=== PATIENT | female | born 1975 | race Caucasian/White ===

== ENCOUNTER → 2017-06-30 13:32 | Outpatient (CLI) | payer OTHER, SELFPAY ==
[2017-06-30 15:16] LABS: Color, Urine Yellow (Yellow); Glucose, Dipstick Normal (Normal); Ketone-Dipstick Negative (Negative); Leukocyte Esterase-Dipstick Negative /ul (Negative); Nitrite-Dipstick Negative (Negative); Occult Blood-Urine Negative /ul (Negative); Protein-Dipstick Negative (Negative); Specific Gravity, Urine 1.005 (1.002-1.030); Urine Bilirubin Dipstick Negative (Negative); Urine Clarity Clear (Clear); Urine Urobilinogen Normal (Normal)
[2017-06-30 15:25] LABS: Absolute Lymphocyte Count 1.64 X10^3/ul (0.83-4.51); Absolute Neutrophil Count 4.4 X10^3/uL (2.0-7.7); Basophil# 0.03 X10^3/uL; Basophil% 0.4 % (0-1); Eosinophil# 0.16 X10^3/uL; Eosinophils% 2.4 % (0-5); Hematocrit 37.2 % (37-47); Hemoglobin 12.8 g/dl (12.0-15.0); Lymphocyte # 1.64 X10^3/ul (4.0); Lymphocyte % 24.3 % (19-41); Mean Corp Hgb Conc 34.4 g/gl (32-36); Mean Corpuscular Hgb 31.7 pg (27.0-32.0); Mean Corpuscular Volume 92.1 fL (81-99); Mean Platelet Vol. 9.4 fl (6.2-12.0); Monocyte% 7.4 % (0-10); Neutrophil % 65.2 % (47-70); Platelet Count 308 K/mm3 (150-450); RBC Distribution Width SD 39.8 fl (35.1-43.9); Red Blood Count 4.04 M/mm3 (4.2-5.4); White Blood Count 6.8 K/mm3 (4.4-11.0)
[2017-06-30 15:28] LABS: POSITIVE COUNT NO; POSITIVE DIFFERENTIAL NO; POSITIVE MORPHOLOGY NO
[2017-06-30 15:48] LABS: AST(SGOT) 15 U/L (15-37); Alanine Aminotransfer ALT/SGPT 10 U/L (13-56); Albumin, Serum 3.6 g/dL (3.2-5.0); Alkaline Phosphatase 43 U/L (45-117); Anion Gap 6 (5-15); BUN 13 mg/dL (7-18); BUN/Creat Ratio 16.3 RATIO (10-20); Calcium,Total 8.9 mg/dL (8.5-10.1); Chloride 105 mmol/L (98-107); EST Glomerular Filtration Rate 84 mL/min (>60); Est Glom Filt Rate - Afr Amer 102 mL/min (>60); Globulin 3.7 g/dL (2.2-4.2); Glucose 79 mg/dL (74-106); Potassium 3.5 mmol/L (3.5-5.1); Protein, Total 7.3 g/dL (6.4-8.2); Sodium Level 138 mmol/L (136-145)
[2017-06-30 16:06] LABS: Protein, Urine (Random) < 6.0 mg/dL (<11.9)
== END ==
PROVIDERS: Visit Provider Internal Medicine Rheumatology
DX: M32.9 Systemic lupus erythematosus, unspecified (principal); L40.8 Other psoriasis
CPT/HCPCS: 36415; 80053; 81002; 82570; 84156; 85025

== ENCOUNTER → 2017-12-31 13:17 | Outpatient (CLI) | payer OTHER, SELFPAY ==
[2017-12-31 14:39] LABS: Color, Urine Yellow (Yellow); Glucose, Dipstick Normal (Normal); Ketone-Dipstick Negative (Negative); Leukocyte Esterase-Dipstick Negative /ul (Negative); Nitrite-Dipstick Negative (Negative); Occult Blood-Urine Negative /ul (Negative); Protein-Dipstick Negative (Negative); Urine Bilirubin Dipstick Negative (Negative); Urine Clarity Clear (Clear); Urine Urobilinogen Normal (Normal)
[2017-12-31 14:40] LABS: Absolute Lymphocyte Count 0.93 X10^3/ul (0.83-4.51); Absolute Neutrophil Count 4.3 X10^3/uL (2.0-7.7); Basophil# 0.03 X10^3/uL; Basophil% 0.5 % (0-1); Eosinophil# 0.06 X10^3/uL; Hematocrit 39.6 % (37-47); Hemoglobin 13.7 g/dl (12.0-15.0); Lymphocyte # 0.93 X10^3/ul (4.0); Lymphocyte % 15.7 % (19-41); Mean Corp Hgb Conc 34.6 g/gl (32-36); Mean Corpuscular Hgb 31.8 pg (27.0-32.0); Mean Corpuscular Volume 91.9 fL (81-99); Monocyte# 0.53 X10^3/uL; Neutrophil # 4.34 X10^3/uL (2.7-7.7); Neutrophil % 73.5 % (47-70); Platelet Count 279 K/mm3 (150-450); RBC Distribution Width CV 12.2 % (11.6-14.6); RBC Distribution Width SD 40.3 fl (35.1-43.9); Red Blood Count 4.31 M/mm3 (4.2-5.4); White Blood Count 5.9 K/mm3 (4.4-11.0)
[2017-12-31 14:41] LABS: POSITIVE COUNT NO; POSITIVE DIFFERENTIAL NO; POSITIVE MORPHOLOGY NO
[2017-12-31 15:06] LABS: AST(SGOT) 12 U/L (15-37); Alanine Aminotransfer ALT/SGPT 14 U/L (13-56); Albumin, Serum 3.8 g/dL (3.2-5.0); Alkaline Phosphatase 58 U/L (45-117); Anion Gap 9 (5-15); BUN 14 mg/dL (7-18); BUN/Creat Ratio 17.5 RATIO (10-20); Calcium,Total 8.7 mg/dL (8.5-10.1); Chloride 103 mmol/L (98-107); EST Glomerular Filtration Rate 84 mL/min (>60); Est Glom Filt Rate - Afr Amer 101 mL/min (>60); Glucose 85 mg/dL (74-106); Potassium 3.7 mmol/L (3.5-5.1); Protein, Total 7.8 g/dL (6.4-8.2); Sodium Level 140 mmol/L (136-145)
[2017-12-31 15:08] LABS: Vitamin D,25 Hydroxy 34.3 ng/mL (29.95-100.01)
[2017-12-31 15:09] LABS: Protein, Urine (Random) < 6.0 mg/dL (<11.9)
== END ==
PROVIDERS: Referring Provider Internal Medicine Rheumatology; Visit Provider Internal Medicine Rheumatology
DX: M32.9 Systemic lupus erythematosus, unspecified (principal); L40.8 Other psoriasis
CPT/HCPCS: 36415; 80053; 81002; 82306; 82570; 84156; 85025

== ENCOUNTER → 2018-06-22 | Outpatient (CLI) | payer OTHER, SELFPAY ==
[2018-06-22 12:30] LABS: Absolute Lymphocyte Count 1.65 X10^3/ul (0.83-4.51); Absolute Neutrophil Count 2.9 X10^3/uL (2.0-7.7); Basophil# 0.03 X10^3/uL; Basophil% 0.6 % (0-1); Eosinophil# 0.15 X10^3/uL; Eosinophils% 2.9 % (0-5); Hematocrit 38.5 % (37-47); Hemoglobin 13.2 g/dl (12.0-15.0); Lymphocyte # 1.65 X10^3/ul (4.0); Lymphocyte % 32.2 % (19-41); Mean Corp Hgb Conc 34.3 g/gl (32-36); Mean Corpuscular Hgb 31.4 pg (27.0-32.0); Mean Corpuscular Volume 91.4 fL (81-99); Mean Platelet Vol. 9.2 fl (6.2-12.0); Monocyte# 0.36 X10^3/uL; Neutrophil # 2.92 X10^3/uL (2.7-7.7); Neutrophil % 57.1 % (47-70); Platelet Count 279 K/mm3 (150-450); RBC Distribution Width CV 12.6 % (11.6-14.6); Red Blood Count 4.21 M/mm3 (4.2-5.4); White Blood Count 5.1 K/mm3 (4.4-11.0)
[2018-06-22 12:31] LABS: POSITIVE COUNT NO; POSITIVE DIFFERENTIAL NO; POSITIVE MORPHOLOGY NO
[2018-06-22 12:49] LABS: AST(SGOT) 17 U/L (15-37); Alanine Aminotransfer ALT/SGPT 14 U/L (13-56); Albumin, Serum 3.9 g/dL (3.2-5.0); Alkaline Phosphatase 50 U/L (45-117); Anion Gap 5 (5-15); BUN 11 mg/dL (7-18); BUN/Creat Ratio 13.3 RATIO (10-20); Calcium,Total 9.1 mg/dL (8.5-10.1); Chloride 107 mmol/L (98-107); Creatinine, Serum 0.83 mg/dL (0.55-1.02); EST Glomerular Filtration Rate 80 mL/min (>60); Est Glom Filt Rate - Afr Amer 97 mL/min (>60); Globulin 3.8 g/dL (2.2-4.2); Glucose 82 mg/dL (74-106); Protein, Total 7.7 g/dL (6.4-8.2); Sodium Level 139 mmol/L (136-145)
== END | disposition home or self-care (01) ==
LOC: MTLAB 10:06
PROVIDERS: Referring Provider Internal Medicine Rheumatology; Visit Provider Internal Medicine Rheumatology
DX: M32.9 Systemic lupus erythematosus, unspecified (principal); L40.8 Other psoriasis
CPT/HCPCS: 36415; 80053; 85025

== ENCOUNTER → 2018-12-21 12:05 | Outpatient (CLI) | payer OTHER, SELFPAY ==
[2018-12-21 14:09] LABS: Absolute Lymphocyte Count 1.51 X10^3/uL (0.83-4.51); Basophil# 0.04 X10^3/uL; Basophil% 0.8 % (0-1); Eosinophils% 3.8 % (0-5); Hematocrit 40.1 % (37-47); Hemoglobin 13.6 g/dL (12.0-15.0); Lymphocyte # 1.51 X10^3/ul (4.0); Lymphocyte % 28.7 % (19-41); Mean Corp Hgb Conc 33.9 g/dL (32-36); Mean Corpuscular Hgb 31.8 pg (27.0-32.0); Mean Corpuscular Volume 93.7 fL (81-99); Mean Platelet Vol. 9.2 fl (6.2-12.0); Monocyte# 0.44 X10^3/uL; Monocyte% 8.4 % (0-10); NRBC Flagged by Analyzer 0 % (0-5); Platelet Count 289 K/mm3 (150-450); RBC Distribution Width SD 41.7 fl (35.1-43.9); Red Blood Count 4.28 M/mm3 (4.2-5.4); White Blood Count 5.3 K/mm3 (4.4-11.0)
[2018-12-21 14:29] LABS: ALB/GLOB Ratio 0.9 RATIO (0.9-2.4); AST(SGOT) 9 U/L (15-37); Alanine Aminotransfer ALT/SGPT 12 U/L (13-56); Albumin, Serum 3.7 g/dL (3.2-5.0); Alkaline Phosphatase 49 U/L (45-117); Anion Gap 6 (5-15); BUN 11 mg/dL (7-18); Chloride 105 mmol/L (98-107); Creatinine, Serum 0.79 mg/dL (0.55-1.02); EST Glomerular Filtration Rate 85 mL/min (>60); Est Glom Filt Rate - Afr Amer 103 mL/min (>60); Globulin 3.9 g/dL (2.2-4.2); Glucose 85 mg/dL (74-106); Potassium 3.9 mmol/L (3.5-5.1); Protein, Total 7.6 g/dL (6.4-8.2); Sodium Level 138 mmol/L (136-145)
[2018-12-21 14:31] LABS: Color, Urine Straw (Yellow); Glucose, Dipstick Normal (Normal); Ketone-Dipstick Negative (Negative); Leukocyte Esterase-Dipstick Negative /ul (Negative); Nitrite-Dipstick Negative (Negative); Occult Blood-Urine Negative /ul (Negative); Protein-Dipstick Negative (Negative); Urine Bilirubin Dipstick Negative (Negative); Urine Clarity Sl. Cloudy (Clear); Urine Urobilinogen Normal (Normal); Urine pH 6.5 (5.0 - 8.0)
[2018-12-21 14:45] LABS: Protein, Urine (Random) 6.1 mg/dL (<11.9); Protein:Creat Ratio 407 mg/g CRE (0-200)
== END ==
PROVIDERS: Referring Provider Internal Medicine Rheumatology; Visit Provider Internal Medicine Rheumatology
DX: M32.9 Systemic lupus erythematosus, unspecified (principal); L40.8 Other psoriasis
CPT/HCPCS: 36415; 80053; 81002; 82570; 84156; 85025

== ENCOUNTER → 2019-06-22 11:49 | Outpatient (CLI) | payer OTHER, SELFPAY ==
[2019-06-22 14:41] LABS: Basophil# 0.06 X10^3/uL; Basophil% 1.2 % (0-1); Eosinophil# 0.14 X10^3/uL; Eosinophils% 2.8 % (0-5); Hematocrit 39.7 % (37-47); Hemoglobin 13.4 g/dL (12.0-15.0); Lymphocyte % 28.2 % (19-41); Mean Corp Hgb Conc 33.8 g/dL (32-36); Mean Corpuscular Hgb 30.9 pg (27.0-32.0); Mean Corpuscular Volume 91.5 fL (81-99); Mean Platelet Vol. 9.4 fl (6.2-12.0); Monocyte# 0.36 X10^3/uL; Monocyte% 7.2 % (0-10); NRBC Flagged by Analyzer 0 % (0-5); Neutrophil % 60.4 % (47-70); Platelet Count 276 K/mm3 (150-450); RBC Distribution Width SD 40.7 fl (35.1-43.9); Red Blood Count 4.34 M/mm3 (4.2-5.4)
[2019-06-22 14:46] LABS: Color, Urine Straw (Yellow); Glucose, Dipstick Normal (Normal); Ketone-Dipstick Negative (Negative); Leukocyte Esterase-Dipstick Negative /ul (Negative); Nitrite-Dipstick Negative (Negative); Occult Blood-Urine Negative /ul (Negative); Protein-Dipstick Negative (Negative); Specific Gravity, Urine 1.015 (1.002-1.030); Urine Bilirubin Dipstick Negative (Negative); Urine Clarity Clear (Clear); Urine Urobilinogen Normal (Normal)
[2019-06-22 14:59] LABS: Creatinine, Urine (random) < 13.00 mg/dL (NO RANGE EST.); Protein, Urine (Random) < 6.0 mg/dL (<11.9)
[2019-06-22 15:04] LABS: ALB/GLOB Ratio 1.1 RATIO (0.9-2.4); AST(SGOT) 12 U/L (15-37); Alanine Aminotransfer ALT/SGPT 14 U/L (13-56); Albumin, Serum 3.9 g/dL (3.2-5.0); Alkaline Phosphatase 51 U/L (45-117); Anion Gap 5 (5-15); BUN 10 mg/dL (7-18); BUN/Creat Ratio 11.9 RATIO (10-20); Calcium,Total 9.5 mg/dL (8.5-10.1); Chloride 107 mmol/L (98-107); Creatinine, Serum 0.84 mg/dL (0.55-1.02); EST Glomerular Filtration Rate 79 mL/min (>60); Est Glom Filt Rate - Afr Amer 95 mL/min (>60); Globulin 3.7 g/dL (2.2-4.2); Glucose 96 mg/dL (74-106); Potassium 3.8 mmol/L (3.5-5.1); Protein, Total 7.6 g/dL (6.4-8.2); Sodium Level 139 mmol/L (136-145)
== END ==
PROVIDERS: Referring Provider Internal Medicine Rheumatology; Visit Provider Internal Medicine Rheumatology
DX: M32.9 Systemic lupus erythematosus, unspecified (principal); L40.8 Other psoriasis
CPT/HCPCS: 36415; 80053; 81002; 82570; 84156; 85025

== ENCOUNTER → 2019-12-20 10:43 | Outpatient (CLI) | payer OTHER, SELFPAY ==
[2019-12-20 12:17] LABS: Absolute Lymphocyte Count 1.47 X10^3/uL (0.83-4.51); Absolute Neutrophil Count 3.6 X10^3/uL (2.0-7.7); Basophil# 0.06 X10^3/uL; Basophil% 1.1 % (0-1); Eosinophil# 0.19 X10^3/uL; Eosinophils% 3.3 % (0-5); Hematocrit 40.9 % (37-47); Hemoglobin 13.7 g/dL (12.0-15.0); Lymphocyte # 1.47 X10^3/ul (4.0); Lymphocyte % 25.8 % (19-41); Mean Corp Hgb Conc 33.5 g/dL (32-36); Mean Corpuscular Hgb 31.1 pg (27.0-32.0); Mean Platelet Vol. 9.3 fl (6.2-12.0); Monocyte# 0.36 X10^3/uL; Monocyte% 6.3 % (0-10); NRBC Flagged by Analyzer 0 % (0-5); Neutrophil # 3.59 X10^3/uL (2.7-7.7); Neutrophil % 63.1 % (47-70); Platelet Count 307 K/mm3 (150-450); RBC Distribution Width CV 11.7 % (11.6-14.6); White Blood Count 5.7 K/mm3 (4.4-11.0)
[2019-12-20 12:58] LABS: AST(SGOT) 16 U/L (15-37); Alanine Aminotransfer ALT/SGPT 22 U/L (13-56); Albumin, Serum 4.1 g/dL (3.2-5.0); Alkaline Phosphatase 66 U/L (45-117); Anion Gap 6 (5-15); BUN 13 mg/dL (7-18); BUN/Creat Ratio 15.7 RATIO (10-20); Calcium,Total 9.6 mg/dL (8.5-10.1); Chloride 104 mmol/L (98-107); Creatinine, Serum 0.83 mg/dL (0.55-1.02); EST Glomerular Filtration Rate 80 mL/min (>60); Est Glom Filt Rate - Afr Amer 96 mL/min (>60); Glucose 90 mg/dL (74-106); Potassium 3.8 mmol/L (3.5-5.1); Protein, Total 8.1 g/dL (6.4-8.2); Sodium Level 138 mmol/L (136-145)
== END ==
PROVIDERS: Referring Provider Internal Medicine Rheumatology; Visit Provider Internal Medicine Rheumatology
DX: M32.9 Systemic lupus erythematosus, unspecified (principal); L40.8 Other psoriasis
CPT/HCPCS: 36415; 80053; 85025

== ENCOUNTER → 2020-06-09 11:46 | Outpatient (CLI) | payer OTHER, SELFPAY ==
[2020-06-09 15:22] LABS: Absolute Neutrophil Count 3.8 X10^3/uL (2.0-7.7); Basophil# 0.07 X10^3/uL; Basophil% 1.1 % (0-1); Eosinophil# 0.17 X10^3/uL; Eosinophils% 2.6 % (0-5); Hematocrit 40.4 % (37-47); Hemoglobin 13.6 g/dL (12.0-15.0); Lymphocyte % 29.4 % (19-41); Mean Corp Hgb Conc 33.7 g/dL (32-36); Mean Corpuscular Hgb 31.6 pg (27.0-32.0); Mean Platelet Vol. 9.7 fl (6.2-12.0); Monocyte# 0.51 X10^3/uL; Monocyte% 7.9 % (0-10); NRBC Flagged by Analyzer 0 % (0-5); Neutrophil # 3.78 X10^3/uL (2.7-7.7); Neutrophil % 58.4 % (47-70); Platelet Count 301 K/mm3 (150-450); RBC Distribution Width CV 12.3 % (11.6-14.6); RBC Distribution Width SD 42.2 fl (35.1-43.9); White Blood Count 6.5 K/mm3 (4.4-11.0)
[2020-06-09 15:57] LABS: ALB/GLOB Ratio 1.2 RATIO (0.9-2.4); AST(SGOT) 21 U/L (15-37); Alanine Aminotransfer ALT/SGPT 21 U/L (13-56); Albumin, Serum 4.1 g/dL (3.2-5.0); Alkaline Phosphatase 65 U/L (45-117); Anion Gap 6 (5-15); BUN 12 mg/dL (7-18); Calcium,Total 9.3 mg/dL (8.5-10.1); Chloride 102 mmol/L (98-107); Creatinine, Serum 0.75 mg/dL (0.55-1.02); EST Glomerular Filtration Rate 89 mL/min (>60); Est Glom Filt Rate - Afr Amer 108 mL/min (>60); Globulin 3.5 g/dL (2.2-4.2); Glucose 82 mg/dL (74-106); Potassium 3.9 mmol/L (3.5-5.1); Protein, Total 7.6 g/dL (6.4-8.2); Sodium Level 136 mmol/L (136-145)
[2020-06-09 18:05] LABS: Color, Urine Straw (Yellow); Glucose, Dipstick Normal (Normal); Ketone-Dipstick Negative (Negative); Leukocyte Esterase-Dipstick Negative /ul (Negative); Nitrite-Dipstick Positive (Negative); Occult Blood-Urine Negative /ul (Negative); Protein-Dipstick Negative (Negative); Specific Gravity, Urine 1.015 (1.002-1.030); Urine Bilirubin Dipstick Negative (Negative); Urine Clarity Clear (Clear); Urine Urobilinogen Normal (Normal); Urine pH 6.5 (5.0 - 8.0)
[2020-06-09 18:53] LABS: Protein, Urine (Random) < 6.0 mg/dL (<11.9)
== END ==
PROVIDERS: PCP Family Medicine Sports Medicine; Referring Provider Internal Medicine Rheumatology; Visit Provider Internal Medicine Rheumatology
DX: M32.9 Systemic lupus erythematosus, unspecified (principal); L40.8 Other psoriasis
CPT/HCPCS: 36415; 80053; 81002; 82570; 84156; 85025

== ENCOUNTER → 2020-11-28 12:08 | Outpatient (CLI) | payer OTHER, SELFPAY ==
[2020-11-28 15:23] LABS: Absolute Lymphocyte Count 1.79 X10^3/uL (0.83-4.51); Absolute Neutrophil Count 3.7 X10^3/uL (2.0-7.7); Basophil# 0.06 X10^3/uL; Eosinophil# 0.16 X10^3/uL; Eosinophils% 2.6 % (0-5); Hematocrit 40.1 % (37-47); Hemoglobin 13.6 g/dL (12.0-15.0); Lymphocyte # 1.79 X10^3/ul (0.83-4.51); Lymphocyte % 28.5 % (19-41); Mean Corp Hgb Conc 33.9 g/dL (32-36); Mean Corpuscular Hgb 31.3 pg (27.0-32.0); Mean Corpuscular Volume 92.4 fL (81-99); Mean Platelet Vol. 9.6 fl (6.2-12.0); Monocyte# 0.55 X10^3/uL; Monocyte% 8.8 % (0-10); NRBC Flagged by Analyzer 0 % (0-5); Neutrophil # 3.68 X10^3/uL (2.7-7.7); Neutrophil % 58.6 % (47-70); Platelet Count 305 K/mm3 (150-450); RBC Distribution Width CV 12.1 % (11.6-14.6); RBC Distribution Width SD 41.5 fl (35.1-43.9); Red Blood Count 4.34 M/mm3 (4.2-5.4); White Blood Count 6.3 K/mm3 (4.4-11.0)
[2020-11-28 15:53] LABS: ALB/GLOB Ratio 1.1 RATIO (0.9-2.4); AST(SGOT) 11 U/L (15-37); Alanine Aminotransfer ALT/SGPT 16 U/L (13-56); Albumin, Serum 3.9 g/dL (3.2-5.0); Alkaline Phosphatase 55 U/L (45-117); Anion Gap 10 (5-15); BUN 13 mg/dL (7-18); Calcium,Total 9.1 mg/dL (8.5-10.1); Chloride 105 mmol/L (98-107); Creatinine, Serum 0.81 mg/dL (0.55-1.02); EST Glomerular Filtration Rate 81 mL/min (>60); Est Glom Filt Rate - Afr Amer 98 mL/min (>60); Globulin 3.6 g/dL (2.2-4.2); Glucose 87 mg/dL (74-106); Potassium 3.7 mmol/L (3.5-5.1); Protein, Total 7.5 g/dL (6.4-8.2); Sodium Level 140 mmol/L (136-145)
== END ==
PROVIDERS: PCP Family Medicine Sports Medicine; Referring Provider Internal Medicine Rheumatology; Visit Provider Internal Medicine Rheumatology
DX: M32.9 Systemic lupus erythematosus, unspecified (principal); Z79.899 Other long term (current) drug therapy; L40.8 Other psoriasis
CPT/HCPCS: 36415; 80053; 85025

== ENCOUNTER 2021-05-25 14:38 | Outpatient (CLI) | payer OTHER, SELFPAY ==
[2021-05-25 17:36] LABS: Absolute Lymphocyte Count 1.62 X10^3/uL (0.83-4.51); Absolute Neutrophil Count 4.1 X10^3/uL (2.0-7.7); Basophil# 0.06 X10^3/uL; Basophil% 0.9 % (0-1); Eosinophil# 0.34 X10^3/uL; Hematocrit 39.8 % (37-47); Hemoglobin 13.7 g/dL (12.0-15.0); Lymphocyte # 1.62 X10^3/ul (0.83-4.51); Mean Corp Hgb Conc 34.4 g/dL (32-36); Mean Corpuscular Hgb 31.4 pg (27.0-32.0); Mean Corpuscular Volume 91.1 fL (81-99); Mean Platelet Vol. 9.7 fl (6.2-12.0); Monocyte# 0.64 X10^3/uL; Monocyte% 9.5 % (0-10); NRBC Flagged by Analyzer 0 % (0-5); Neutrophil # 4.07 X10^3/uL (2.7-7.7); Neutrophil % 60.2 % (47-70); Platelet Count 312 K/mm3 (150-450); RBC Distribution Width CV 12.1 % (11.6-14.6); RBC Distribution Width SD 40.9 fl (35.1-43.9); Red Blood Count 4.37 M/mm3 (4.2-5.4); White Blood Count 6.8 K/mm3 (4.4-11.0)
[2021-05-25 18:27] LABS: ALB/GLOB Ratio 1.1 RATIO (0.9-2.4); AST(SGOT) 19 U/L (15-37); Alanine Aminotransfer ALT/SGPT 22 U/L (13-56); Albumin, Serum 4.1 g/dL (3.2-5.0); Alkaline Phosphatase 61 U/L (45-117); Anion Gap 4 (5-15); BUN 12 mg/dL (7-18); BUN/Creat Ratio 18.8 RATIO (10-20); Calcium,Total 9.1 mg/dL (8.5-10.1); Chloride 105 mmol/L (98-107); Creatinine, Serum 0.64 mg/dL (0.55-1.02); EST Glomerular Filtration Rate 107 mL/min (>60); Est Glom Filt Rate - Afr Amer 129 mL/min (>60); Globulin 3.6 g/dL (2.2-4.2); Glucose 89 mg/dL (74-106); Potassium 3.7 mmol/L (3.5-5.1); Protein, Total 7.7 g/dL (6.4-8.2); Sodium Level 138 mmol/L (136-145)
== END 2021-05-25 23:59 | disposition home or self-care (01) ==
LOC: MTLAB 14:39
PROVIDERS: PCP Family Medicine Sports Medicine; Referring Provider Internal Medicine Rheumatology; Visit Provider Internal Medicine Rheumatology
DX: M32.9 Systemic lupus erythematosus, unspecified (principal); Z79.899 Other long term (current) drug therapy; L40.8 Other psoriasis
CPT/HCPCS: 36415; 80053; 85025

== ENCOUNTER → 2021-11-22 | Outpatient (CLI) | payer OTHER, SELFPAY ==
[2021-11-22 15:06] LABS: Absolute Lymphocyte Count 1.35 X10^3/uL (0.83-4.51); Basophil# 0.05 X10^3/uL; Basophil% 0.8 % (0-1); Eosinophil# 0.22 X10^3/uL; Eosinophils% 3.6 % (0-5); Hematocrit 38.8 % (37-47); Hemoglobin 13.2 g/dL (12.0-15.0); Lymphocyte # 1.35 X10^3/ul (0.83-4.51); Mean Corpuscular Hgb 31.7 pg (27.0-32.0); Mean Platelet Vol. 9.6 fl (6.2-12.0); Monocyte# 0.49 X10^3/uL; NRBC Flagged by Analyzer 0 % (0-5); Neutrophil # 3.99 X10^3/uL (2.7-7.7); Neutrophil % 65.1 % (47-70); Platelet Count 298 K/mm3 (150-450); RBC Distribution Width CV 12.1 % (11.6-14.6); RBC Distribution Width SD 41.3 fl (35.1-43.9); Red Blood Count 4.17 M/mm3 (4.2-5.4); White Blood Count 6.1 K/mm3 (4.4-11.0)
[2021-11-22 15:10] LABS: Color, Urine Straw (Yellow); Glucose, Dipstick Normal (Normal); Ketone-Dipstick Negative (Negative); Leukocyte Esterase-Dipstick Negative /ul (Negative); Nitrite-Dipstick Negative (Negative); Occult Blood-Urine Negative /ul (Negative); Protein-Dipstick Negative (Negative); Specific Gravity, Urine 1.005 (1.002-1.030); Urine Bilirubin Dipstick Negative (Negative); Urine Clarity Clear (Clear); Urine Urobilinogen Normal (Normal)
[2021-11-22 15:19] LABS: AST(SGOT) 19 U/L (15-37); Alanine Aminotransfer ALT/SGPT 20 U/L (13-56); Albumin, Serum 3.8 g/dL (3.2-5.0); Alkaline Phosphatase 57 U/L (45-117); Anion Gap 7 (5-15); BUN 13 mg/dL (7-18); BUN/Creat Ratio 17.1 RATIO (10-20); Calcium,Total 9.1 mg/dL (8.5-10.1); Chloride 107 mmol/L (98-107); Creatinine, Serum 0.76 mg/dL (0.55-1.02); EST Glomerular Filtration Rate 87 mL/min (>60); Est Glom Filt Rate - Afr Amer 105 mL/min (>60); Globulin 3.7 g/dL (2.2-4.2); Glucose 116 mg/dL (74-106); Potassium 3.8 mmol/L (3.5-5.1); Protein, Total 7.5 g/dL (6.4-8.2); Sodium Level 139 mmol/L (136-145)
[2021-11-22 15:30] LABS: Creatinine, Urine (random) < 13.00 mg/dL (NO RANGE EST.); Protein, Urine (Random) < 6.0 mg/dL (<11.9)
== END | disposition home or self-care (01) ==
LOC: MTLAB 11:58
PROVIDERS: PCP Family Medicine Sports Medicine; Referring Provider Internal Medicine Rheumatology; Visit Provider Internal Medicine Rheumatology
DX: M32.9 Systemic lupus erythematosus, unspecified (principal); Z79.899 Other long term (current) drug therapy; L40.8 Other psoriasis
CPT/HCPCS: 36415; 80053; 81002; 82570; 84156; 85025

== ENCOUNTER → 2022-05-24 | Outpatient (CLI) | payer OTHER, SELFPAY ==
[2022-05-24 12:41] LABS: Absolute Lymphocyte Count 1.43 X10^3/uL (0.83-4.51); Absolute Neutrophil Count 2.4 X10^3/uL (2.0-7.7); Basophil# 0.05 X10^3/uL; Basophil% 1.1 % (0-1); Eosinophil# 0.21 X10^3/uL; Eosinophils% 4.6 % (0-5); Hematocrit 40.7 % (37-47); Hemoglobin 13.9 g/dL (12.0-15.0); Lymphocyte # 1.43 X10^3/ul (0.83-4.51); Lymphocyte % 31.2 % (19-41); Mean Corp Hgb Conc 34.2 g/dL (32-36); Mean Corpuscular Hgb 31.7 pg (27.0-32.0); Mean Corpuscular Volume 92.9 fL (81-99); Monocyte# 0.45 X10^3/uL; Monocyte% 9.8 % (0-10); NRBC Flagged by Analyzer 0 % (0-5); Neutrophil # 2.42 X10^3/uL (2.7-7.7); Neutrophil % 52.6 % (47-70); Platelet Count 305 K/mm3 (150-450); RBC Distribution Width CV 12.1 % (11.6-14.6); RBC Distribution Width SD 42.1 fl (35.1-43.9); Red Blood Count 4.38 M/mm3 (4.2-5.4); White Blood Count 4.6 K/mm3 (4.4-11.0)
[2022-05-24 13:12] LABS: ALB/GLOB Ratio 1.2 RATIO (0.9-2.4); AST(SGOT) 20 U/L (15-37); Alanine Aminotransfer ALT/SGPT 19 U/L (13-56); Albumin, Serum 4.1 g/dL (3.2-5.0); Alkaline Phosphatase 51 U/L (45-117); Anion Gap 4 (5-15); BUN 13 mg/dL (7-18); BUN/Creat Ratio 15.9 RATIO (10-20); Calcium,Total 9.7 mg/dL (8.5-10.1); Chloride 106 mmol/L (98-107); Creatinine, Serum 0.82 mg/dL (0.55-1.02); EST Glomerular Filtration Rate 80 mL/min (>60); Est Glom Filt Rate - Afr Amer 97 mL/min (>60); Globulin 3.5 g/dL (2.2-4.2); Glucose 100 mg/dL (74-106); Potassium 4.3 mmol/L (3.5-5.1); Protein, Total 7.6 g/dL (6.4-8.2); Sodium Level 137 mmol/L (136-145)
== END | disposition home or self-care (01) ==
LOC: MTLAB 11:02
PROVIDERS: PCP Family Medicine Sports Medicine; Referring Provider Internal Medicine Rheumatology; Visit Provider Internal Medicine Rheumatology
DX: M32.9 Systemic lupus erythematosus, unspecified (principal); Z79.899 Other long term (current) drug therapy; L40.8 Other psoriasis
CPT/HCPCS: 36415; 80053; 85025

== ENCOUNTER → 2022-11-19 | Outpatient (CLI) | payer OTHER, SELFPAY ==
[2022-11-19 12:23] LABS: Erythrocyte Sedimentation Rate 4 mm/hr (0-30)
[2022-11-19 12:25] LABS: Absolute Lymphocyte Count 1.52 X10^3/uL (0.83-4.51); Absolute Neutrophil Count 3.6 X10^3/uL (2.0-7.7); Basophil# 0.08 X10^3/uL; Basophil% 1.3 % (0-1); Eosinophil# 0.27 X10^3/uL; Eosinophils% 4.4 % (0-5); Hematocrit 42.5 % (37-47); Hemoglobin 14.3 g/dL (12.0-15.0); Lymphocyte # 1.52 X10^3/ul (0.83-4.51); Lymphocyte % 24.9 % (19-41); Mean Corp Hgb Conc 33.6 g/dL (32-36); Mean Corpuscular Hgb 30.8 pg (27.0-32.0); Mean Corpuscular Volume 91.4 fL (81-99); Mean Platelet Vol. 9.5 fl (6.2-12.0); Monocyte# 0.58 X10^3/uL; Monocyte% 9.5 % (0-10); NRBC Flagged by Analyzer 0 % (0-5); Neutrophil # 3.62 X10^3/uL (2.7-7.7); Neutrophil % 59.4 % (47-70); Platelet Count 293 K/mm3 (150-450); RBC Distribution Width CV 12.2 % (11.6-14.6); Red Blood Count 4.65 M/mm3 (4.2-5.4); White Blood Count 6.1 K/mm3 (4.4-11.0)
[2022-11-19 12:29] LABS: Protein, Urine (Random) < 6.0 mg/dL (<11.9)
[2022-11-19 13:00] LABS: ALB/GLOB Ratio 1.1 RATIO (0.9-2.4); AST(SGOT) 12 U/L (15-37); Alanine Aminotransfer ALT/SGPT 15 U/L (13-56); Albumin, Serum 4.2 g/dL (3.2-5.0); Alkaline Phosphatase 61 U/L (45-117); Anion Gap 6 (5-15); BUN 12 mg/dL (7-18); BUN/Creat Ratio 15.5 RATIO (10-20); CRP < 2.90 mg/L (0.0-3.0); Calcium,Total 9.5 mg/dL (8.5-10.1); Chloride 109 mmol/L (98-107); Creatinine, Serum 0.77 mg/dL (0.55-1.02); EST Glomerular Filtration Rate 85 mL/min (>60); Est Glom Filt Rate - Afr Amer 103 mL/min (>60); Globulin 3.8 g/dL (2.2-4.2); Glucose 91 mg/dL (74-106); Sodium Level 139 mmol/L (136-145); Uric Acid 3.8 mg/dL (2.6-6.0)
== END | disposition home or self-care (01) ==
LOC: MTLAB 10:14
PROVIDERS: PCP Family Medicine Sports Medicine; Referring Provider Internal Medicine Rheumatology; Visit Provider Internal Medicine Rheumatology
DX: M32.9 Systemic lupus erythematosus, unspecified (principal); Z79.899 Other long term (current) drug therapy
CPT/HCPCS: 36415; 80053; 82570; 84156; 84550; 85025; 85652; 86140

== ENCOUNTER → 2023-05-12 | Outpatient (CLI) | payer OTHER, SELFPAY ==
--- OUTSIDE RECORDS SUMMARY | 2023-05-12 10:26 | XMS RPT_ITS | CCD ---
Author Name Unknown Address [facility] [address] [place] [address] Organization [facility] Care Team Providers Care Customer Marketing Manager Name Role Phone Des Melchor MD Primary Care Provider DES MELCHOR Attending Unavailable DES MELCHOR Primary Care Unavailable DES MELCHOR Primary Care Unavailable MANJINDER DEUTSCH Referring Unavailable Medications Completed/Discontinued Medications Medication Drug Class(es) Dates Sig (Normalized) Sig (Original) cholecalciferol 0.01 mg oral tablet (9 sources) Vitamin D cholecalciferol (VITAMIN D3) 400 unit tab Take 1,000 Int'l Units by mouth once daily. 0 Active Problems Active Problems Problem Classification Problem Date Documented Date Episodic/Chronic Genitourinary symptoms and ill-defined conditions (10 sources) Female stress incontinence; Translations: [Stress incontinence (female) (male)] Onset: 05-23-2021 Chronic Other inflammatory condition of skin (9 sources) Rosacea; Translations: [Rosacea, unspecified] Onset: 12-05-2020 12-05-2020 Chronic Other inflammatory condition of skin (9 sources) Pustular psoriasis; Translations: [Generalized pustular psoriasis] Onset: 02-28-2021 02-28-2021 Chronic Other upper respiratory disease (9 sources) Seasonal allergy; Translations: [Other seasonal allergic rhinitis] 04-09-2013 Chronic Prolapse of female genital organs (10 sources) Incomplete uterovaginal prolapse; Translations: [Incomplete uterovaginal prolapse] Onset: 05-23-2021 Chronic Residual codes; unclassified (1 source) Postoperative state; Translations: [Other specified postprocedural states] Episodic Residual codes; unclassified (1 source) History of endometrial ablation; Translations: [Other specified postprocedural states] Episodic Systemic lupus erythematosus and connective tissue disorders (9 sources) Lupus erythematosus; Translations: [Systemic lupus erythematosus, unspecified] 02-28-2021 Chronic Past or Other Problems Problem Classification Problem Date Documented Da te Episodic/Chronic Other infections; including parasitic (4 sources) History of herpes zoster; Translations: [Personal history of other infectious and parasitic diseases] Onset: 03-03-2018 01-08-2022 Episodic Other screening for suspected conditions (not mental disorders or infectious disease) (5 sources) Patient encounter status; Translations: [Encounter for screening mammogram for malignant neoplasm of breast] Onset: 07-08-2022 Episodic Results Test Name Value Interpretation Reference Range Facil ity Vital Signs Date Time Vital Sign Value Performing Clinician Faci lity 08-08-2022 08:02-0400 Body height 165.1 cm Des Melchor MD Work Phone: [facility] 08-08-2022 08:02-0400 Body temperature 98.2 [degF] Des Melchor MD Work Phone: [facility] 08-08-2022 08:02-0400 Body weight 68.04 kg Des Melcohr MD Work Phone: [facility] 08-08-2022 08:02-0400 Diastolic blood pressure 64 mm[Hg] Des Melchor MD Work Phone: [facility] 08-08-2022 08:02-0400 Heart rate 90 /min Des Melchor MD Work Phone: [facility] 08-08-2022 08:02-0400 SaO2% (BldA) [Mass fraction] 100 % Des Melchor MD Work Phone: [facility] 08-08-2022 08:02-0400 Systolic blood pressure 106 mm[Hg] Des Melchor MD Work Phone: [facility] 08-22-2021 08:53-0400 Body weight 67.95 kg Alexander Vernon MD Work Phone: [facility] 08-22-2021 08:53-0400 Diastolic blood pressure 70 mm[Hg] Alexander Vernon MD Work Phone: [facility] 08-22-2021 08:53-0400 Heart rate 76 /min Alexander Vernon MD Work Phone: [facility] 08-22-2021 08:53-0400 Respiratory rate 16 /min Alexander Vernon MD Work Phone: [facility] 08-22-2021 08:53-0400 Systolic blood pressure 128 mm[Hg] Alexander Vernon MD Work Phone: [facility] 05-23-2021 10:30-0400 Body weight 66 kg Alexander Vernon MD Work Phone: [facility] 05-23-2021 10:30-0400 Diastolic blood pressure 82 mm[Hg] Alexander Vernon MD Work Phone: [facility] 05-23-2021 10:30-0400 Systolic blood pressure 124 mm[Hg] Alexander Vernon MD Work Phone: [facility] Encounters Encounter Date Encounter Type Care Provider Facility Start: 08-08-2022 End: 08-08-2022 ambulatory DES MELCHOR Facility:[facility] Start: 08-08-2022 End: 08-08-2022 Patient encounter procedure Des Melchor MD Work Phone: [facility] Procedures Date Procedure Procedure Detail Performing Clinician Start: 07-08-2022 Mammography Mammograph y Coordinator Start: 07-06-2021 ANNI SCREENING W ROSALES Mccracken MD Work Phone: Start: 07-06-2021 Mammography Screen Wst r Start: 11-30-2020 Adult depression screening assessment Alexander Vernon MD Work Phone: Start: 11-02-2019 Mammography Alexander posada MD Work Phone: Plan of Treatment Date Care Activity Detail Author Start: 08-08-2032 Urine microalbumin profile DTA P,TDAP,TD (3 - Td or Tdap) [facility] Start: 12-26-2025 HPV TESTING HPV TESTING [facility] Start: 12-26-2025 PAP TESTING PAP TESTING [facility] Start: 10-17-2024 LIPID SCREEN LIPID SCREEN [facility] Start: 08-09-2023 COVID-19 VACCINE (4 - Booster for Pfizer series) COVID-19 VACCINE (4 - Booster for Pfizer series) [facility] Immunizations Immunization Date Immunization Notes Care Provider Shiva giles 08-08-2022 tetanus toxoid, redu adriana diphtheria toxoid, and acellular pertussis vaccine, adsorbed Des Melchor MD Work Phone: [facility] 12-05-2020 COVID-19 vaccine, ag e 12+ yr (PFIZER-BIONTECH - PURPLE TOP) Alexander Vernon MD Work Phone: [facility] 12-05-2020 influenza, injectabl e, quadrivalent, contains preservative Alexander Vernon MD Work Phone: [facility] 01-05-2018 influenza, injectabl e, quadrivalent, preservative free Alexander Vernon MD Work Phone: [facility] Work Phone: 10-30-2010 tetanus toxoid, redu adriana diphtheria toxoid, and acellular pertussis vaccine, adsorbed Des Melchor MD Work Phone: [facility] Work Phone: Payers Date Payer Category Payer Unknown MMO MMO [employer] [id number] 2018-Present [phone] [address] [place] [address] O [id number] 2018 Unknown [id number] 2018 Unknown [id number] Social History Date Type Detail Facility Start: 10-18-2010 End: 01-08-2022 Tobacco smoking status NHIS Never smoked tobacco [facility] Start: 10-18-2010 End: 01-08-2022 Tobacco use and exposure Smokeless tobacco non-user [facility] Start: 05-23-2021 End: 08-08-2022 Alcohol intake Current non-drinker of alcohol (finding) [facility] Start: 11-30-2020 End: 08-06-2022 History SDOH Alcohol Frequency 1 [facility] Start: 11-30-2020 History SDOH Alcohol Std Drinks 98 [facility] Start: 11-30-2020 End: 08-06-2022 History SDOH Social Connections Phone 3 [facility] Start: 11-30-2020 End: 08-06-2022 History SDOH Physical Activity DPW 4 [facility] Start: 11-30-2020 End: 08-06-2022 History SDOH Physical Activity MPS 2 [facility] Start: 11-30-2020 End: 08-06-2022 History SDOH Financial 5 [facility] Start: 11-30-2020 Education 19 [facility] Start: 1975 Sex Assigned At Female [facility] Start: 05-13-2021 End: 07-11-2022 Exposure to SARS-CoV-2 (event) Not sure [facility] Start: 08-06-2022 History SDOH Alcohol Std Drinks 0 [facility] Clinical Notes 01-23-2021 to 08-08-2022 Des Melchor MD - 08/08/2022 8:09 AM EDTDadorys Waters LPN - 08/08/2022 8:03 AM EDTPatient InstructionsLetter - Mammography Coordinator - 07/08/2022 1:25 PM EDTPatient InstructionsPatient Instructions Note Date & Type Note Facility 08-08-2022 Note HNO ID: [id number] Author: Des Melchor MD Service: ? Author Type: Physician Type: Progress Notes Filed: 08/08/2022 8:37 AM Note Text: Patient presents with: Physical HPI: Frances Aguilar is a 47 year old female who presents to the office today for physical. Lupus Diagnosed around 2011, initial symptoms were mouth sores, rash On plaquenil - doing well Rheum - Dr. Lainey Day Gets labs every 6 months - reviewed from 05/2022 Gets eye exams regularly for plaquenil. Sees derm yearly, dad had melanoma. Maternal grandfather had colon CA - later in life. Pap 2020 - normal, hpv neg. Mammo 07/2022 - normal - had to have ultrasounds bilaterally, simple cysts. had vasectomy Had uterine ablation, still has regular periods, just very light. Walking for exercise. 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 REVIEW OF SYSTEMS: CONSTITUTIONAL: No fevers, chills, nightsweats, unintended weight loss HEENT: Denies frequent or severe heaches, nasal congestion/sinus symptoms, problematic allergy problems. EYES: No diplopia or blurry vision. CARDIOVASCULAR: No chest pain, dyspnea, palpitations, orthopnea, PND, ankle edema. PULM: No dyspnea, unexplained cough. GI: No dysphagia/odynophagia, problematic reflux, constipation, diarrhea, changes in stool habits, hematochezia, melena. : No new urinary complaints, including dysuria, gross hematuria or pyuria. NEURO: No new balance problems, peripheral weakness/paresthesias or numbness of concern. MUSC-SKEL: No new joint pain, swelling, or erythema. PSY: No concerns regarding depression, anxiety or panic. INTEGUMENTARY: No new skin changes (rash, new or changing mole, new growth) PAST MEDICAL HISTORY Diagnosis Date History of shingles 2018 2018 scalp, forehead and eyelid - saw derm and opthalmology - all resolved per pt Lupus (HCC) 2011 Dr Ramos, skin lesions/mouth lesions Pustular psoriasis Seasonal allergies occ claritin/erin/flonase prn otc PAST SURGICAL HISTORY Procedure Laterality Date HYSTEROSCOPY ENDOMETRIAL ABLATION 04/24/2021 Nicolás TOOTH EXTRACTION wisdom teeth extracted FAMILY HISTORY Problem Relation Age of Onset Hyperlipidemia Mother Melanoma Father stage 1a Hypothyroidism Father Stroke Maternal Grandmother Colon Cancer Maternal Grandfather 60s Breast Cancer Paternal Grandfather 70s COPD Paternal Grandfather Pancreatic Cancer Maternal Uncle Breast Cancer Paternal Aunt x2 Uterine Cancer Paternal Aunt Cancer Paternal Aunt ? female ? Ischemic Heart Disease No Family History Diabetes No Family History Prostate Cancer No Family History Social History Tobacco Use Smoking status: Never Smokeless tobacco: Never Vaping Use Vaping Use: Never used Substance Use Topics Alcohol use: No Drug use: No ACTIVE PROBLEM LIST Seasonal Allergies Lupus (Hcc) Rosacea Pustular Psoriasis Rosa Maria (Stress Urinary Incontinence, Female) Incomplete Uterovaginal Prolapse History of Shingles ALLERGIES No Known Allergies MEDICATIONS: loratadine (CLARITIN) 10 mg tablet Take 1 tablet by mouth once daily. HYDROXYCHLOROQUINE SULFATE (PLAQUENIL ORAL) Take 300 mg by mouth once daily. fluticasone (FLONASE) 50 mcg/actuation nasal spray Use 1 [place] in each nostril once daily. cholecalciferol (VITAMIN D3) 400 unit tab Take 1,000 Int'l Units by mouth once daily. metroNIDAZOLE 1 % gel Apply 1 application to affected area once daily. On face at HS for rosacea pimecrolimus (ELIDEL) 1 % cream Apply 1 application to affected area twice daily. EXAM:BP 106/64 Pulse 90 Temp 36.8 ?C (98.2 ?F) (Temporal) Ht 165.1 cm (5' 5 ) Wt 68 kg (150 lb) LMP 12/19/2021 SpO2 100% BMI 24.96 kg/m? Last Wt 08/08/22 : 68 kg (150 lb) 01/08/22 : 66.9 kg (147 lb 8 oz) 08/22/21 : 67.9 kg (149 lb 12.8 oz) 05/23/21 : 66 kg (145 lb 8 oz) PHYSICAL EXAM: General Appearance: Well appearing, alert, in no acute distress, well-hydrated, well nourished.. Skin: Skin color, texture, turgor normal, no suspicious rashes or lesions. Lymph Nodes: No cervical lymphadenopathy, No supraclavicular lymphadenopathy Head: Normocephalic, no masses, lesions, tenderness or abnormalities. Eyes: Anicteric sclera. Pupils are equally round and reactive to light. Extraocular movements are intact. Nose/Sinuses: Nares normal, septum midline, mucosa normal, no drainage or sinus tenderness. Oropharynx: Lips, mucosa, and tongue normal, teeth and gums normal, oropharynx normal. Neck: Supple, no adenopathy; thyroid symmetric, normal size, no bruits. Lungs: Lungs clear to auscultation. No wheezing, rhonchi, rales. Heart: RRR without murmur, gallop, or rubs. No ectopy. Abdomen: Normal abdominal exam, Abdomen soft, non-tender. Bowel sounds normal. No masses, organomegaly. Extremit (more content not included)... [facility] 08-08-2022 Note HNO ID: [id number] Author: Annamarie Waters LPN Service: ? Author Type: ? Type: Progress Notes Filed: 08/08/2022 8:37 AM Note Text: HEPATITIS B(1 of 3 - 3-dose series) Never done HEPATITIS C SCREENING Never done HIV SCREENING Never done DTAP,TDAP,TD(2 - Td or Tdap) due on 10/30/2020 COVID-19 VACCINE(4 - Booster for Pfizer series) due on 01/30/2021 DIABETES SCREEN due on 2021 COLORECTAL CANCER SCREENING Never done DEPRESSION ASSESSMENT Never done [facility] 08-08-2022 History of Present illness Narrative Patient presents with: Physical HPI: Frances Aguilar is a 47 year old female who presents to the office today for physical. Lupus Diagnosed around 2011, initial symptoms were mouth sores, rash On plaquenil - doing well Rheum - Dr. Lainey Day Gets labs every 6 months - reviewed from 05/2022 Gets eye exams regularly for plaquenil. Sees derm yearly, dad had melanoma. Maternal grandfather had colon CA - later in life. Pap 2020 - normal, hpv neg. Mammo 07/2022 - normal - had to have ultrasounds bilaterally, simple cysts. had vasectomy Had uterine ablation, still has regular periods, just very light. Walking for exercise. 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 REVIEW OF SYSTEMS: CONSTITUTIONAL: No fevers, chills, nightsweats, unintended weight loss HEENT: Denies frequent or severe heaches, nasal congestion/sinus symptoms, problematic allergy problems. EYES: No diplopia or blurry vision. CARDIOVASCULAR: No chest pain, dyspnea, palpitations, orthopnea, PND, ankle edema. PULM: No dyspnea, unexplained cough. GI: No dysphagia/odynophagia, problematic reflux, constipation, diarrhea, changes in stool habits, hematochezia, melena. : No new urinary complaints, including dysuria, gross hematuria or pyuria. NEURO: No new balance problems, peripheral weakness/paresthesias or numbness of concern. MUSC-SKEL: No new joint pain, swelling, or erythema. PSY: No concerns regarding depression, anxiety or panic. INTEGUMENTARY: No new skin changes (rash, new or changing mole, new growth) PAST MEDICAL HISTORY Diagnosis Date History of shingles 2018 2018 scalp, forehead and eyelid - saw derm and opthalmology - all resolved per pt Lupus (HCC) 2011 Dr Ramos, skin lesions/mouth lesions Pustular psoriasis Seasonal allergies occ claritin/erin/flonase prn otc PAST SURGICAL HISTORY Procedure Laterality Date HYSTEROSCOPY ENDOMETRIAL ABLATION 04/24/2021 Nicolás TOOTH EXTRACTION wisdom teeth extracted FAMILY HISTORY Problem Relation Age of Onset Hyperlipidemia Mother Melanoma Father stage 1a Hypothyroidism Father Stroke Maternal Grandmother Colon Cancer Maternal Grandfather 60s Breast Cancer Paternal Grandfather 70s COPD Paternal Grandfather Pancreatic Cancer Maternal Uncle Breast Cancer Paternal Aunt x2 Uterine Cancer Paternal Aunt Cancer Paternal Aunt ? female ? Ischemic Heart Disease No Family History Diabetes No Family History Prostate Cancer No Family History Social History Tobacco Use Smoking status: Never Smokeless tobacco: Never Vaping Use Vaping Use: Never used Substance Use Topics Alcohol use: No Drug use: No ACTIVE PROBLEM LIST Seasonal Allergies Lupus (Hcc) Rosacea Pustular Psoriasis Rosa Maria (Stress Urinary Incontinence, Female) Incomplete Uterovaginal Prolapse History of Shingles ALLERGIES No Known Allergies MEDICATIONS: loratadine (CLARITIN) 10 mg tablet Take 1 tablet by mouth once daily. HYDROXYCHLOROQUINE SULFATE (PLAQUENIL ORAL) Take 300 mg by mouth once daily. fluticasone (FLONASE) 50 mcg/actuation nasal spray Use 1 [place] in each nostril once daily. cholecalciferol (VITAMIN D3) 400 unit tab Take 1,000 Int'l Units by mouth once daily. metroNIDAZOLE 1 % gel Apply 1 application to affected area once daily. On face at HS for rosacea pimecrolimus (ELIDEL) 1 % cream Apply 1 application to affected area twice daily. EXAM:BP 106/64 Pulse 90 Temp 36.8 C (98.2 F) (Temporal) Ht 165.1 cm (5' 5 ) Wt 68 kg (150 lb) LMP 12/19/2021 SpO2 100% BMI 24.96 kg/m Last Wt 06/08/23 : 68 kg (150 lb) 01/08/22 : 66.9 kg (147 lb 8 oz) 08/22/21 : 67.9 kg (149 lb 12.8 oz) 05/23/21 : 66 kg (145 lb 8 oz) PHYSICAL EXAM: General Appearance: Well appearing, alert, in no acute distress, well-hydrated, well nourished.. Skin: Skin color, texture, turgor normal, no suspicious rashes or lesions. Lymph Nodes: No cervical lymphadenopathy, No supraclavicular lymphadenopathy Head: Normocephalic, no masses, lesions, tenderness or abnormalities. Eyes: Anicteric sclera. Pupils are equally round and reactive to light. Extraocular movements are intact. Nose/Sinuses: Nares normal, septum midline, mucosa normal, no drainage or sinus tenderness. Oropharynx: Lips, mucosa, and tongue normal, teeth and gums normal, oropharynx normal. Neck: Supple, no adenopathy; thyroid symmetric, normal size, no bruits. Lungs: Lungs clear to auscultation. No wheezing, rhonchi, rales. Heart: RRR without murmur, gallop, or rubs. No ectopy. Abdomen: Normal abdominal exam, Abdomen soft, non-tender. Bowel sounds normal. No masses, organomegaly. Extremities: No deformities, edema, skin discoloration, clubbing or cyanosis. Good capillary refill. Peripheral Pulses: Normal. Neurologic: Gait normal. ASSESSMENT/PLAN: 1. Encounter for well adult exam without abnormal findings - ICD9: V70.0, ICD10: Z00.00 (primary diagnosis) - Counseled on healthy diet and regular exercise - Calcium intake with supplements or by diet of 1000 mg/day for under 50, 2691-6319 mg/day for 50+ - Colorectal cancer screening recommended - agrees to Colonoscopy 2. Screening for colon cancer - ICD9: V76.51, ICD10: Z12.11 - pt prefers Dr. Chan, advised to call and schedule. - CONSULT TO GASTROENTEROLOGY 3. Encounter for immunization - ICD9: V03.89, ICD10: Z23 - TDAP VACCINE, AGE 7+ YR (ADACEL, BOOSTRIX) Des Melchor HEPATITIS B(1 of 3 - 3-dose series) Never done HEPATITIS C SCREENING Never done HIV SCREENING Never done DTAP,TDAP,TD(2 - Td or Tdap) due on 10/30/2020 COVID-19 VACCINE(4 - Booster for Pfizer series) due on 01/30/2021 DIABETES SCREEN due on 2021 COLORECTAL CANCER SCREENING Never done DEPRESSION ASSESSMENT Never done documented in this encounter [facility] 08-08-2022 Instructions Annamarie Waters LPN - 08/08/2022 7:59 AM EDT [facility] BU[facility] LAB TEST INFORMATION [facility] BU[facility] LAB HOURS: Lab is open: 7:30am to 5:00pm M - , 7:30am to 4:00pm on Fri and 8am -12pm on Fri. The lab is located in [facility] on the first floor. There is a registration window at the lab, available 7 am to 3 pm Friday - Friday. If registration is unavailable at the lab, you may register at the patient registration office near the front lobby of the [facility]. SCHEDULING A LAB APPOINTMENT: Laboratory appointments are recommended.Walk ins are still accepted. Call [phone] or schedule [address] scheduling ticket. ROUTINE LAB ORDERS 60 days after they are entered. If your lab orders , you may be required to wait in the lab while they are reinstated FUTURE ORDERS are lab tests to be completed on the EXPECTED date. These orders 60 days after the expected date. STANDING ORDERS are recurring orders with an expiration date. The interval will indicate how often the test should be completed. CT / MRI / IVP If you have lab tests ordered for one of these radiology exams, please complete the blood work at least one day prior to the scheduled exam. PRESCRIPTION REFILL REQUESTS Request prescription refills through your [address] account or contact your Pharmacy. My Chart Schedule My Appointment enables you to view your established primary care provider's open schedule and book an appointment online in real-time. This feature is available in internal medicine, family medicine, or pediatrics at any of our [facility] locations and main campus. documented in this encounter [facility] 07-08-2022 Note HNO ID: [id number] Author: RT Myles(R) Service: ? Author Type: Technologist Type: Progress Notes Filed: 07/08/2022 12:50 PM Note Text: Radiology Service Progress Note PATIENT NAME: Frances Aguilar DATE OF SERVICE: July 08, 2022 TIME: 12:50 PM PATIENT IDENTITY VERIFICATION COMPLETED USING TWO (2) IDENTIFIERS: Name and Date of confirmed by patient verbally. FALL SCREENING: Has the patient had 2 falls in the last year or 1 fall with injury or currently using an Ambulatory Assistive Device (Walker, Cane, Wheelchair, Crutches, etc.)? No PATIENT GENDER DATA: Female. status: : No status: NO. PATIENT RELEVANT IMPLANT DATA REVIEWED: Not Applicable RADIOLOGY DEPARTMENT: Mammography PERIPHERAL IV DATA: Not applicable SIGNED BY: RT Myles(R) July 08, 2022 12:50 PM [facility] 07-08-2022 Miscellaneous Notes July 09, 2022 PID: [id number] Frances Aguilar [address] [place] [address] Dear Ms. Aguilar, Your recent breast imaging exam on 07/08/2022 showed a possible finding that requires additional imaging studies for a complete evaluation. Most such findings are probably benign (not cancer). Your mammogram demonstrates that you have dense breast tissue, which could hide abnormalities. Dense breast tissue, in and of itself, is a relatively common condition. Therefore, this information is not provided to cause undue concern; rather, it is to raise your awareness and promote discussion with your health care provider regarding the presence of dense breast tissue in addition to other risk factors. If you have a healthcare provider who ordered/prescribed your screening mammogram: Please call [phone] or [phone]: [phone] to schedule an appointment for your additional imaging (if you have not already done so). If you DO NOT have a healthcare provider (ie you did not have an order/prescription for your screening mammogram): Please call to schedule an appointment for your additional imaging (if you have not already done so). You must have an order/prescription from your physician when calling to schedule your appointment. If your order/prescription is not electronic, you must bring the hard copy with you on the day of your exam to avoid delays. Your imaging studies and reports are kept on file at [facility] as part of your permanent medical record, and are available for your continuing care. Thank you for allowing us to help in meeting your health care needs. Sincerely, Dr. Mccormick Interpreting Radiologist [facility] (Additional imaging) documented in this encounter [facility] 06-04-2022 Miscellaneous Notes Reviewed. Angeli Oneil PA-C Received Labs from [facility]. Placed in provider's inbox for review. Route to [place] for scanning. documented in this encounter [facility] 11-26-2021 Miscellaneous Notes Reviewed. Angeli Oneil PA-C Labs from [facility]. Placed on Dr. Melchor's desk for review. Return for scanning. Annamarie Waters LPN documented in this encounter [facility] 08-22-2021 Instructions Alexander Vernon MD - 08/22/2021 9:10 AM EDT PREVENTING OSTEOPOROSIS * Calcium and vitamin D can slow bone loss and may decrease fractures. Consume 1,000-1,200mg milligrams of calcium a day in divided doses. Calcium is necessary but not always sufficient. Good sources of calcium are calcium supplements, like Tums, fruit juices and breads; lowfat dairy products; green leafy vegetables such as broccoli, kale and spinach greens, almonds; and soy milk. Calcium CITRATE like Citracal D is well absorbed with or without food/stomach acid and is the preferred calcium supplement in women on stomach acid blockers and women with a history of kidney stones. * Vitamin D3 aids in the absorption of calcium and stimulates bone formation. Consume at least OF SEPARATE 1,000iu to 2,000 iu international units of vitamin D3 a day and up to 5,000 iu daily if you have been found to be low * Eat foods low in sodium, low in animal protein and low in caffeine. * Bone mass is built before menopause as a result of exercising, diet, and genetics. Exercises that increase bone mass are the ones that make the muscles work against gravity. Walking and muscle-building exercise may reduce bone loss and fractures and improve balance. Visit www.nof.org, the National Osteoporosis Foundation web site for more bone tips. documented in this encounter [facility] 08-22-2021 History of Present illness Narrative Frances Aguilar is a 46 year old female who presents for a follow up for post ablation follow-up Pap 2020. Procedure: Hysteroscopy with D&C, Nicolás Endometrial Ablation and Polypectomy FINAL DIAGNOSIS 1. Endometrium and myometrium, submucosal myomectomy (A) - Fragments of benign submucosal leiomyoma. - Adenomyosis. - Benign proliferative endometrium with focal stromal breakdown. 2. Endometrium, curetting (B) - Benign proliferative endometrium with focal stromal breakdown. - Benign endocervix. 1) INCOMPLETE UTEROVAGINAL PROLAPSE, grade 1 to grade 2 2) minimal occasional stress urinary incontinence overall not bothered by this 3) status post Nicolás endometrial ablation with excellent response 4) had one menses after surgery light Plan: 1) plan 3-month follow-up to reassess the next 2 cycles for response to Nicolás ablation 2) education completed regarding incomplete uterovaginal prolapse as well as pelvic floor and Kegel's exercises 3) initiate Kegel's exercises 4) follow-up 3 months for ROSA MARIA response as well Subjective: Menses: only 1.5 days long, minimal. Decrease in ROSA MARIA sx's. Metamucil wafers. Current Outpatient Medications on File Prior to Visit Medication Sig loratadine (CLARITIN) 10 mg tablet Take 1 tablet by mouth once daily. HYDROXYCHLOROQUINE SULFATE (PLAQUENIL ORAL) Take 300 mg by mouth once daily. fluticasone (FLONASE) 50 mcg/actuation nasal spray Use 1 [place] in each nostril once daily. cholecalciferol, Vitamin D3, (VITAMIN D-3) 400 unit tab Take 1,000 Int'l Units by mouth once daily. metroNIDAZOLE 1 % gel Apply 1 application to affected area once daily. On face at for rosacea pimecrolimus (ELIDEL) 1 % cream Apply 1 application to affected area twice daily. No current facility-administered medications on file prior to visit. PAST MEDICAL HISTORY Diagnosis Date History of D&C 04/24/2021 ablation Lupus (HCC) 2011 Dr Ramos, skin lesions/mouth lesions Pustular psoriasis S/P endometrial ablation 04/24/2021 nicolás Seasonal allergies occ claritin/erin/flonase prn otc Shingles 2018 2018 scalp, forehead and eyelid - saw derm and opthalmology - all resolved per pt PAST SURGICAL HISTORY Procedure Laterality Date HYSTEROSCOPY ENDOMETRIAL ABLATION 04/24/2021 Nicolás PAST SURGICAL HISTORY OF wisdom teeth extracted PAST SURGICAL HISTORY OF dental extraction FAMILY HISTORY Problem Relation Age of Onset Hyperlipidemia Mother other (melanoma--stage 1a, hypothyroidism) Father Colon Cancer Maternal Grandfather 60s Breast Cancer Paternal Grandfather 70s Cancer Maternal Uncle Pancreatic Breast Cancer Paternal Aunt x2 No Family History No Family History DM, CAD Social History Tobacco Use Smoking status: Never Smoker Smokeless tobacco: Never Used Substance Use Topics Alcohol use: No Drug use: No Objective: BP 128/70 Pulse 76 Resp 16 Wt 149 lb 12.8 oz (67.9kg) LMP 08/08/2021 Patient's last menstrual period was 08/08/2021. ALLERGIES No Known Allergies GENERAL: pleasant, female in no apparent distress HEENT: Normocephalic, atraumatic, mucus membranes moist and no lesions NEURO: alert and oriented x3 Assessment: Return in about 1 year (around 08/22/2022) for Annual. Alexander Vernon MD documented in this encounter [facility] 07-06-2021 Miscellaneous Notes July 06, 2021 PID: [id number] Frances Aguilar [address] [place] [address] Dear Rachell SantiagoAguilar, We are pleased to inform you that the results of your recent breast imaging exam on 07/06/2021 are normal. Your mammogram demonstrates that you have dense breast tissue, which could hide abnormalities. Dense breast tissue, in and of itself, is a relatively common condition. Therefore, this information is not provided to cause undue concern; rather, it is to raise your awareness and promote discussion with your health care provider regarding the presence of dense breast tissue in addition to other risk factors. Early detection of cancer is very important. We also understand recommendations regarding breast cancer screening are controversial. Please discuss with your primary care provider which strategy is best for you and whether a mammogram is right for you. Your imaging studies and report will be kept on file at [facility] as part of your permanent medical record and are available for your continuing care. Thank you for allowing us to help in meeting your health care needs. Sincerely, Dr. Araya Interpreting Radiologist [facility] (Normal over 40) documented in this encounter [facility] 07-06-2021 History of Present illness Narrative Radiology Service Progress Note PATIENT NAME: Frances Aguilar DATE OF SERVICE: July 06, 2021 TIME: 10:08 AM PATIENT IDENTITY VERIFICATION COMPLETED USING TWO (2) IDENTIFIERS: Name and Date of confirmed by patient verbally. FALL SCREENING: Has the patient had 2 falls in the last year or 1 fall with injury or currently using an Ambulatory Assistive Device (Walker, Cane, Wheelchair, Crutches, etc.)? No PATIENT GENDER DATA: Female. status: : No status: NO. PATIENT RELEVANT IMPLANT DATA REVIEWED: Not Applicable RADIOLOGY DEPARTMENT: Mammography PERIPHERAL IV DATA: Not applicable SIGNED BY: RT Myles(R) July 06, 2021 10:08 AM documented in this encounter [facility] 05-23-2021 Instructions Alexander Vernon MD - 05/23/2021 11:13 AM EDT METAMUCIL WAFERS, FOLLOWED BY WATER BACK UP MIRALAX 1 SCOOP DAILY IF NEEDED. documented in this encounter [facility] 05-23-2021 History of Present illness Narrative Frances Aguilar is a 46 year old female who presents for a follow up for postoperative D&C hysteroscopy Nicolás endometrial ablation and fibroid resection. Subjective: 05/16-05/17 LIGHT MENSES. Did well after surgery with minimal postoperative bleeding and cramping Procedure: Hysteroscopy with D&C, Nicolás Endometrial Ablation and Polypectomy Pre-Op/Pre-Procedure Diagnosis: Endometrial polyp, Fibroids/Leiomyomas and Irregular bleeding Findings: Endometrium: Thin endometrium Endometrial cavity: Normal Polyps: Endometrial polyp: small polyp on anterior wall Fibroids: Fibroid present: small submucosal fibroid superior to endometrial polyp on anterior wall Current Outpatient Medications on File Prior to Visit Medication Sig loratadine (CLARITIN) 10 mg tablet Take 1 tablet by mouth once daily. HYDROXYCHLOROQUINE SULFATE (PLAQUENIL ORAL) Take 300 mg by mouth once daily. fluticasone (FLONASE) 50 mcg/actuation nasal spray Use 1 [place] in each nostril once daily. cholecalciferol, Vitamin D3, (VITAMIN D-3) 400 unit tab Take 1,000 Int'l Units by mouth once daily. metroNIDAZOLE 1 % gel Apply 1 application to affected area once daily. On face at for rosacea pimecrolimus (ELIDEL) 1 % cream Apply 1 application to affected area twice daily. ibuprofen (MOTRIN) 600 mg tablet Take 1 tablet by mouth every 6 hours as needed for pain. No current facility-administered medications on file prior to visit. PAST MEDICAL HISTORY Diagnosis Date History of D&C 04/24/2021 ablation Lupus (HCC) 2011 Dr Ramos, skin lesions/mouth lesions Pustular psoriasis S/P endometrial ablation 04/24/2021 nicolás Seasonal allergies occ claritin/erin/flonase prn otc Shingles 2018 2018 scalp, forehead and eyelid - saw derm and opthalmology - all resolved per pt PAST SURGICAL HISTORY Procedure Laterality Date HYSTEROSCOPY ENDOMETRIAL ABLATION 04/24/2021 Nicolás PAST SURGICAL HISTORY OF wisdom teeth extracted PAST SURGICAL HISTORY OF dental extraction FAMILY HISTORY Problem Relation Age of Onset Hyperlipidemia Mother other (melanoma--stage 1a, hypothyroidism) Father Colon Cancer Maternal Grandfather 60s Breast Cancer Paternal Grandfather 70s Cancer Maternal Uncle Pancreatic Breast Cancer Paternal Aunt x2 No Family History No Family History DM, CAD Social History Tobacco Use Smoking status: Never Smoker Smokeless tobacco: Never Used Substance Use Topics Alcohol use: No Drug use: No Objective: BP 124/82 Wt 145 lb 8 oz (66.0kg) LMP 05/16/2021 Patient's last menstrual period was 05/16/2021 (exact date). ALLERGIES No Known Allergies GENERAL: pleasant, female in no apparent distress HEENT: Normocephalic, atraumatic, mucus membranes moist and no lesions NEURO: alert and oriented x3 FINAL DIAGNOSIS 1. Endometrium and myometrium, submucosal myomectomy (A) - Fragments of benign submucosal leiomyoma. - Adenomyosis. - Benign proliferative endometrium with focal stromal breakdown. 2. Endometrium, curetting (B) - Benign proliferative endometrium with focal stromal breakdown. - Benign endocervix. Assessment: 1) INCOMPLETE UTEROVAGINAL PROLAPSE, grade 1 to grade 2 2) minimal occasional stress urinary incontinence overall not bothered by this 3) status post Nicolás endometrial ablation with excellent response 4) had one menses after surgery light Plan: 1) plan 3-month follow-up to reassess the next 2 cycles for response to Nicolás ablation 2) education completed regarding incomplete uterovaginal prolapse as well as pelvic floor and Kegel's exercises 3) initiate Kegel's exercises 4) follow-up 3 months for ROSA MARIA response as well Alexander Vernon MD documented in this encounter [facility] 04-24-2021 Note HNO ID: [id number] Author: James Paredes APRN.[employer] Service: Anesthesiology Author Type: Nurse Order Editor Type: Anesthesia Procedure Notes Filed: 04/24/2021 11:32 AM Note Text: ANESTHESIOLOGY PROCEDURE NOTE Airway General Information Procedure Start Time/Medication Administration: 04/24/2021 11:23 AM Procedure End Time: 04/24/2021 11:25 AM Patient location during procedure: OR Timeout Performed Pre-procedure: timeout performed Consent Obtained: Yes Patient identity confirmed: arm band, 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 [employer]: James Paredes APRN.[employer]IST Performed by: [employer]IST Indications and Patient Condition Preoxygenated: yes Patient position: sniffing Manual In-Line Stabilization: No Difficult Mask: No Indications for airway management: anesthesia anesthesia circuit Method: asleep Cricoid Pressure: No Final Airway Details Final airway type: supraglottic airway Number of attempts at approach: 1 Final Supraglottic Airway: i-gel Size 3 Seal Adequate: yes Failed airway: no Unrecognized esophageal intubation: no Airway not difficult SIGNATURE: James Paredes APRN.[employer]IST PATIENT NAME: Frances Aguilar DATE: April 24, 2021 TIME: 11:32 AM CSN: [id number] [facility] 01-23-2021 Note HNO ID: [id number] Author: Lucien Toth MD Service: ? Author Type: Physician Type: Progress Notes Filed: 01/23/2021 7:18 PM Note Text: Patient is here for ultrasound. Please see image section in Epic for results. Nola Becerril MD [facility] 01-23-2021 Note Procedure (WHREBA) FRANCES AGUILAR ([id number]) 1975 F Date Time Provider Department 01/23/21 10:30 AM TANTIBHEDHYANGKUL, JULIERUT WHREBA During your visit today, we recorded the following information about you: Nola Becerril MD 01/23/2021 7:18 PM Signed Patient is here for ultrasound. Please see image section in Epic for results. Nola Becerril MD Referring Provider: DORITA GARCIA [[id number]] Allergies As of Date: 01/23/2021 (No Known Allergies) Date Reviewed: 12/26/2020 Reviewed by: Dorita Garcia PA-C - Fully Assessed Primary Visit Diagnosis:Endometrial polyp [N84.0] Prescriptions as of 01/23/2021 - loratadine (CLARITIN) 10 mg tablet Take 1 tablet by mouth once daily. - HYDROXYCHLOROQUINE SULFATE (PLAQUENIL ORAL) Take 300 mg by mouth once daily. - fluticasone (FLONASE) 50 mcg/actuation nasal spray Use 1 [place] in each nostril once daily. - cholecalciferol, Vitamin D3, (VITAMIN D-3) 400 unit tab Take 1,000 Int'l Units by mouth once daily. - metroNIDAZOLE 1 % gel Apply 1 application to affected area once daily. On face at for rosacea - pimecrolimus (ELIDEL) 1 % cream Apply 1 application to affected area twice daily. Meds Comments as of 12/26/2020: [facility] is mail order pharmacy. Problem List As Of Date 01/23/2021 Noted Resolved Seasonal allergies [J30.2] Lupus (HCC) [M32.9] Rosacea [L71.9] 12/05/2020 Encounter Status:Closed by LUCIEN GIRON on 01/23/21 [facility] Encounter for screening mammogram for breast cancer [facility] Diagnosis S/P endometrial ablation- Primary Other postprocedural status [facility] Diagnosis Abnormal screening mammogram Abnormal mammogram, unspecified [facility] Diagnosis Encounter for well adult exam without abnormal findings- Primary Screening for colon cancer Special screening for malignant neoplasms, colon Encounter for immunization Need for other specified prophylactic vaccination against single bacterial disease documented in this encounter [facility] for referral (narrative)* Diagnostic Procedure Only (Routine) - Closed Specialty Diagnoses / Procedures Referred By John cook Referred To Contact [facility] Diagnoses Encounter for screening mammogram for breast cancer Procedures ANNI SCREENING W ROSALES SCREENING BREAST DGTL ROSALES UNI/BILAT ADD ON SCREENING MAMMOGRAPHY BI 2-VIEW BREAST INC CAD Des Melchor MD [address] [place] [address] [facility] [address] [place] [address] Referral ID Status Reason Start Date Expiration Date V isits Requested Visits Authorized [id number] Closed Auto-Generate d Referral 12/05/2020 01/04/2022 1 1 [facility] for referral (narrative)* Diagnostic Procedure Only (Routine) - Closed Specialty Diagnoses / Procedures Referred By John cook Referred To Contact [facility] Diagnoses Abnormal screening mammogram Procedures US BREAST LTD LEFT US BREAST UNI REAL TIME WITH IMAGE LIMITED Manjinder Deutsch MD [address] [address] [facility] [address] [place] [address] Referral ID Status Reason Start Date Expiration Date V isits Requested Visits Authorized [id number] Closed Auto-Generate d Referral 07/08/2022 08/07/2023 1 1 * Diagnostic Procedure Only (Routine) - Closed Specialty Diagnoses / Procedures Referred By John cook Referred To Contact [facility] Diagnoses Abnormal screening mammogram Procedures US BREAST LTD RIGHT US BREAST UNI REAL TIME WITH IMAGE LIMITED Manjinder Deutsch MD [address] [address] [facility] [address] [place] [address] Referral ID Status Reason Start Date Expiration Date V isits Requested Visits Authorized [id number] Closed Auto-Generate d Referral 07/08/2022 08/07/2023 1 1 [facility] for visit Narrative* Diagnostic Procedure Only (Routine) - Closed Specialty Diagnoses / Procedures Referred By Contac t Referred To Contact [facility] Diagnoses Encounter for screening mammogram for breast cancer Procedures ANNI SCREENING W ROSALES SCREENING BREAST DGTL ROSALES UNI/BILAT ADD ON SCREENING MAMMOGRAPHY BI 2-VIEW BREAST INC Des Basilio MD [address] [place] [address] [facility] [address] [place] [address] Referral ID Status Reason Start Date Expiration Date V isits Requested Visits Authorized [id number] Closed Auto-Generate d Referral 12/05/2020 01/04/2022 1 1 [facility] for visit Narrative* Diagnostic Procedure Only (Routine) - Closed Specialty Diagnoses / Procedures Referred By John cook Referred To Contact [facility] Diagnoses Abnormal screening mammogram Procedures US BREAST LTD LEFT US BREAST UNI REAL TIME WITH IMAGE LIMITED Manjinder Deutsch MD [address] [address] [facility] [address] [place] [address] Referral ID Status Reason Start Date Expiration Date V isits Requested Visits Authorized [id number] Closed Auto-Generate d Referral 07/08/2022 08/07/2023 1 1 [facility] Summary Purpose Family History No Family History Records FoundNo Family History Records FoundNo Family History Records Found Advance Directives No Advanced Directives Records FoundDocuments on File Type Date Recorded Patient Managed Services Sales Consultant Expl anation Advance Directive(s) 04/24/2021 6:08 AM Mo anned 04-24-2021 Advance Directive(s) 04/24/2021 6:07 AM Advance Directive(s) 02/28/2021 5:56 PM Documents on File Type Date Recorded Patient Managed Services Sales Consultant Expl anation Advance Directive(s) 04/24/2021 6:08 AM Mo anned 04-24-2021 Advance Directive(s) 04/24/2021 6:07 AM Advance Directive(s) 02/28/2021 5:56 PM Documents on File Type Date Recorded Patient Managed Services Sales Consultant Expl anation Advance Directive(s) 04/24/2021 6:07 AM Documents on File Type Date Recorded Patient Managed Services Sales Consultant Expl anation Advance Directive(s) 04/24/2021 6:07 AM Reason for Referral Specialty Diagnoses / Procedures Referred By John t Referred To Contact Gastroenterology Diagnoses Screening for colon cancer Procedures CONSULT TO GASTROENTEROLOGY OFFICE/OUTPATIENT [facility] 60-74 MINUTES Des Melchor MD [address] [place] [address] Referral ID Status Reason Start Date Expiration Date Visits Requested Visits Authorized [id number] Authorized PCP Requested Referral 08/08/2022 08/08/2023 1 1 Additional Source Comments INFORMATION SOURCE (unrecogn ized section and content) DATE CREATED AUTHOR AUTHOR'S ORGANIZ ATION 04/27/2021 [facility] DATE CREATED AUTHOR AUTHOR'S ORGANIZ ATION 03/09/2023 [facility] Source Comments (unrecognize d section and content) In the event this informatio n is protected by the Federal Confidentiality of Alcohol and Drug Abuse Patient Records regulations: The Federal rules restrict any use of the information to criminally investigate or prosecute any alcohol or drug abuse patient.[facility] the event this information is protected by the Federal Confidentiality of Alcohol and Drug Abuse Patient Records regulations: The Federal rules restrict any use of the information to criminally investigate or prosecute any alcohol or drug abuse patient.[facility] the event this information is protected by the Federal Confidentiality of Alcohol and Drug Abuse Patient Records regulations: The Federal rules restrict any use of the information to criminally investigate or prosecute any alcohol or drug abuse patient.[facility] the event this information is protected by the Federal Confidentiality of Alcohol and Drug Abuse Patient Records regulations: The Federal rules restrict any use of the information to criminally investigate or prosecute any alcohol or drug abuse patient.[facility] the event this information is protected by the Federal Confidentiality of Alcohol and Drug Abuse Patient Records regulations: The Federal rules restrict any use of the information to criminally investigate or prosecute any alcohol or drug abuse patient.[facility] the event this information is protected by the Federal Confidentiality of Alcohol and Drug Abuse Patient Records regulations: The Federal rules restrict any use of the information to criminally investigate or prosecute any alcohol or drug abuse patient.[facility] the event this information is protected by the Federal Confidentiality of Alcohol and Drug Abuse Patient Records regulations: The Federal rules restrict any use of the information to criminally investigate or prosecute any alcohol or drug abuse patient.[facility] the event this information is protected by the Federal Confidentiality of Alcohol and Drug Abuse Patient Records regulations: The Federal rules restrict any use of the information to criminally investigate or prosecute any alcohol or drug abuse patient.[facility] the event this information is protected by the Federal Confidentiality of Alcohol and Drug Abuse Patient Records regulations: The Federal rules restrict any use of the information to criminally investigate or prosecute any alcohol or drug abuse patient.[facility] Reason for Visit (unrecogniz ed section and content) Reason Comments Follow Up Reason Comments Results Reason Comments Physical Care Teams (unrecognized sec tion and content) Customer Marketing Manager Relationship Specialty Start Date End Date Des Melchor MD [address] [place] [address] PCP - General Family Practice 12/05/20 Customer Marketing Manager Relationship Specialty Start Date End Date Des Melchor MD [address] [place], [place] [id number] PCP - General Family Practice 12/05/20 Customer Marketing Manager Relationship Specialty Start Date End Date Des Melchor MD [address] [place] [address] PCP - General Family Practice 12/05/20 Customer Marketing Manager Relationship Specialty Start Date End Date Des Melchor MD [address] [place] [address] PCP - General Family Medicine 12/05/20 Customer Marketing Manager Relationship Specialty Start Date End Date Des Melchor MD [address] [place] [address] PCP - General Family Medicine 12/05/20 Customer Marketing Manager Relationship Specialty Start Date End Date Des Melchor MD [address] [place] [address] PCP - General Family Medicine 12/05/20 Customer Marketing Manager Relationship Specialty Start Date End Date Des Melchor MD [address] [place] [address] PCP - General Family Medicine 12/05/20 Customer Marketing Manager Relationship Specialty Start Date End Date Des Melchor MD [address] [place] [address] PCP - General Family Medicine 12/05/20 FOR RECORDS PERTAINING TO PATIENTS WHO ARE OR HAVE BEEN ENROLLED IN A CHEMICAL DEPENDENCY/SUBSTANCEABUSE PROGRAM, SOME INFORMATION MAY BE OMITTED. This clinical summary was aggregated from multiple sources. Caution should be exercised in using it in the provision of clinical care. This summary normalizes information from multiple sources, and as a consequence, information in this document may materially change the coding, format and clinical context of patient data. In addition, data may be omitted in some cases. CLINICAL DECISIONS SHOULD BE BASED ON THE PRIMARY CLINICAL RECORDS. [facility] [employer] [facility]. provides no warranty or guarantee of the accuracy or completeness of information in this document.
[2023-05-12 12:32] LABS: Absolute Lymphocyte Count 1.47 X10^3/uL (0.83-4.51); Absolute Neutrophil Count 2.7 X10^3/uL (2.0-7.7); Basophil# 0.08 X10^3/uL; Basophil% 1.5 % (0-1); Eosinophils% 9.5 % (0-5); Hematocrit 40.5 % (37-47); Hemoglobin 13.6 g/dL (12.0-15.0); Lymphocyte # 1.47 X10^3/ul (0.83-4.51); Lymphocyte % 27.9 % (19-41); Mean Corp Hgb Conc 33.6 g/dL (32-36); Mean Corpuscular Hgb 30.9 pg (27.0-32.0); Mean Platelet Vol. 9.2 fl (6.2-12.0); Monocyte# 0.51 X10^3/uL; Monocyte% 9.7 % (0-10); NRBC Flagged by Analyzer 0 % (0-5); Neutrophil # 2.68 X10^3/uL (2.7-7.7); Platelet Count 300 K/mm3 (150-450); RBC Distribution Width CV 12.1 % (11.6-14.6); RBC Distribution Width SD 40.9 fl (35.1-43.9); White Blood Count 5.3 K/mm3 (4.4-11.0)
[2023-05-12 13:42] LABS: ALB/GLOB Ratio 1.2 RATIO (0.9-2.4); AST(SGOT) 15 U/L (15-37); Alanine Aminotransfer ALT/SGPT 11 U/L (13-56); Albumin, Serum 4.1 g/dL (3.2-5.0); Alkaline Phosphatase 53 U/L (45-117); Anion Gap 6 (5-15); BUN 12 mg/dL (7-18); BUN/Creat Ratio 15.8 RATIO (10-20); Calcium,Total 9.4 mg/dL (8.5-10.1); Chloride 107 mmol/L (98-107); Creatinine, Serum 0.76 mg/dL (0.55-1.02); EST Glomerular Filtration Rate 87 mL/min (>60); Est Glom Filt Rate - Afr Amer 105 mL/min (>60); Globulin 3.5 g/dL (2.2-4.2); Glucose 81 mg/dL (74-106); Potassium 3.9 mmol/L (3.5-5.1); Protein, Total 7.6 g/dL (6.4-8.2); Sodium Level 140 mmol/L (136-145)
== END | disposition home or self-care (01) ==
PROVIDERS: PCP Family Medicine Sports Medicine; Referring Provider Internal Medicine Rheumatology; Visit Provider Internal Medicine Rheumatology
DX: M32.9 Systemic lupus erythematosus, unspecified (principal); Z79.899 Other long term (current) drug therapy; L40.8 Other psoriasis
CPT/HCPCS: 36415; 80053; 85025

== ENCOUNTER → 2023-11-12 | Outpatient (CLI) | payer OTHER, SELFPAY ==
[2023-11-12 12:21] LABS: Absolute Lymphocyte Count 1.41 X10^3/uL (0.83-4.51); Absolute Neutrophil Count 3.1 X10^3/uL (2.0-7.7); Basophil# 0.06 X10^3/uL; Basophil% 1.1 % (0-1); Eosinophil# 0.38 X10^3/uL; Hemoglobin 13.9 g/dL (12.0-15.0); Lymphocyte # 1.41 X10^3/ul (0.83-4.51); Lymphocyte % 26.1 % (19-41); Mean Corp Hgb Conc 33.9 g/dL (32-36); Mean Corpuscular Hgb 31.2 pg (27.0-32.0); Mean Corpuscular Volume 91.9 fL (81-99); Mean Platelet Vol. 9.4 fl (6.2-12.0); Monocyte# 0.47 X10^3/uL; Monocyte% 8.7 % (0-10); NRBC Flagged by Analyzer 0 % (0-5); Neutrophil # 3.05 X10^3/uL (2.7-7.7); Neutrophil % 56.5 % (47-70); Platelet Count 285 K/mm3 (150-450); RBC Distribution Width CV 12.4 % (11.6-14.6); RBC Distribution Width SD 41.4 fl (35.1-43.9); Red Blood Count 4.46 M/mm3 (4.2-5.4); White Blood Count 5.4 K/mm3 (4.4-11.0)
[2023-11-12 12:31] LABS: Color, Urine Straw (Yellow); Glucose, Dipstick Normal (Normal); Ketone-Dipstick Negative (Negative); Leukocyte Esterase-Dipstick Negative /ul (Negative); Nitrite-Dipstick Negative (Negative); Occult Blood-Urine Negative /ul (Negative); Protein-Dipstick Negative (Negative); Urine Bilirubin Dipstick Negative (Negative); Urine Clarity Clear (Clear); Urine Urobilinogen Normal (Normal); Urine pH 6.5 (5.0 - 8.0)
[2023-11-12 12:34] LABS: Creatinine, Urine (random) < 13.00 mg/dL (NO RANGE EST.); Protein, Urine (Random) < 6.0 mg/dL (<11.9)
[2023-11-12 13:56] LABS: ALB/GLOB Ratio 1.2 RATIO (0.9-2.4); AST(SGOT) 17 U/L (15-37); Alanine Aminotransfer ALT/SGPT 13 U/L (13-56); Albumin, Serum 4.1 g/dL (3.2-5.0); Alkaline Phosphatase 60 U/L (45-117); Anion Gap 11 (5-15); BUN 15 mg/dL (7-18); Calcium,Total 9.5 mg/dL (8.5-10.1); Chloride 106 mmol/L (98-107); Cholesterol 195 mg/dL (200); Creatinine, Serum 0.75 mg/dL (0.55-1.02); EST Glomerular Filtration Rate 88 mL/min (>60); Est Glom Filt Rate - Afr Amer 106 mL/min (>60); Globulin 3.5 g/dL (2.2-4.2); Glucose 83 mg/dL (74-106); High Density Lipoprotein 76 mg/dL; Protein, Total 7.6 g/dL (6.4-8.2); Sodium Level 139 mmol/L (136-145); Triglycerides 70 mg/dL; Very Low Density Lipoprotein 14 mg/dL (5-40)
== END | disposition home or self-care (01) ==
LOC: MTLAB 09:45
PROVIDERS: PCP Family Medicine Sports Medicine; Referring Provider Family Medicine Sports Medicine; Visit Provider Family Medicine Sports Medicine
DX: Z13.220 Encounter for screening for lipoid disorders (principal); M32.9 Systemic lupus erythematosus, unspecified; Z79.899 Other long term (current) drug therapy; L40.8 Other psoriasis
CPT/HCPCS: 36415; 80053; 80061; 81002; 82570; 84156; 85025

== ENCOUNTER → 2024-05-03 | Outpatient (CLI) | payer OTHER, SELFPAY ==
[2024-05-03 15:36] LABS: Absolute Lymphocyte Count 1.72 X10^3/uL (0.83-4.51); Absolute Neutrophil Count 3.9 X10^3/uL (2.0-7.7); Basophil# 0.06 X10^3/uL; Basophil% 0.9 % (0-1); Eosinophil# 0.32 X10^3/uL; Eosinophils% 4.9 % (0-5); Hematocrit 41.1 % (37-47); Hemoglobin 14.2 g/dL (12.0-15.0); Lymphocyte # 1.72 X10^3/ul (0.83-4.51); Lymphocyte % 26.3 % (19-41); Mean Corp Hgb Conc 34.5 g/dL (32-36); Mean Corpuscular Hgb 31.4 pg (27.0-32.0); Mean Corpuscular Volume 90.9 fL (81-99); Mean Platelet Vol. 9.6 fl (6.2-12.0); Monocyte# 0.54 X10^3/uL; Monocyte% 8.3 % (0-10); NRBC Flagged by Analyzer 0 % (0-5); Neutrophil # 3.88 X10^3/uL (2.7-7.7); Neutrophil % 59.3 % (47-70); POSITIVE COUNT YES; Platelet Count 227 K/mm3 (150-450); RBC Distribution Width CV 12.2 % (11.6-14.6); RBC Distribution Width SD 40.6 fl (35.1-43.9); Red Blood Count 4.52 M/mm3 (4.2-5.4); White Blood Count 6.5 K/mm3 (4.4-11.0)
[2024-05-03 15:56] LABS: Differential Indicated SCAN CRITERIA MET
[2024-05-03 17:13] LABS: Differential Comment SCANNED
[2024-05-03 21:51] LABS: ALB/GLOB Ratio 1.4 RATIO (0.9-2.4); AST(SGOT) 24 U/L (<=31); Alanine Aminotransfer ALT/SGPT 11 U/L (<=34); Albumin, Serum 4.5 g/dL (3.5-5.0); Alkaline Phosphatase 55 U/L (35-104); Anion Gap 12 (5-15); BUN 12 mg/dL (4-19); BUN/Creat Ratio 16.5 RATIO (10-20); Calcium 10.1 mg/dL (7.6-11.0); Carbon Dioxide 22.7 mmol/L (22.0-29.0); Chloride 102 mmol/L (96-108); EST Glomerular Filtration Rate 107 (>60); Globulin 3.1 g/dL (2.2-4.2); Glucose 77 mg/dL (70-99); Potassium 3.9 mmol/L (3.3-5.1); Protein, Total 7.7 g/dL (5.9-8.4); Sodium Level 137 mmol/L (133-145); Total Bilirubin 0.46 mg/dL (0.00-1.30)
== END | disposition home or self-care (01) ==
LOC: MTLAB 12:52
PROVIDERS: PCP Family Medicine Sports Medicine; Referring Provider Internal Medicine Rheumatology; Visit Provider Internal Medicine Rheumatology
DX: M32.9 Systemic lupus erythematosus, unspecified (principal); Z79.899 Other long term (current) drug therapy; L40.8 Other psoriasis
CPT/HCPCS: 36415; 80053; 85025

== ENCOUNTER → 2024-10-28 | Outpatient (CLI) | payer OTHER, SELFPAY ==
[2024-10-28 10:42] LABS: Hematocrit 40.4 % (37-47); Hemoglobin 14.1 g/dL (12.0-15.0); Immature Granulocytes Count 0.050 X10^3/uL (0.0-0.0); Mean Corp Hgb Conc 34.9 g/dL (32-36); Mean Corpuscular Volume 91.2 fL (81-99); Mean Platelet Vol. 9.4 fl (6.2-12.0); NRBC Flagged by Analyzer 0 % (0-5); Platelet Count 281 K/mm3 (150-450); RBC Distribution Width CV 12.1 % (11.6-14.6); RBC Distribution Width SD 40.5 fl (35.1-43.9); Red Blood Count 4.43 M/mm3 (4.2-5.4); White Blood Count 6.4 K/mm3 (4.4-11.0)
[2024-10-28 10:56] LABS: AST(SGOT) 18 U/L (<=31); Alanine Aminotransfer ALT/SGPT 7 U/L (<=34); Albumin, Serum 4.4 g/dL (3.5-5.0); Alkaline Phosphatase 54 U/L (35-104); Anion Gap 12 (5-15); BUN 13 mg/dL (4-19); BUN/Creat Ratio 15.9 RATIO (10-20); Calcium,Total 9.7 mg/dL (7.6-11.0); Carbon Dioxide 23.6 mmol/L (21.0-32.0); Chloride 103 mmol/L (98-108); Cholesterol 188 mg/dL (<=200); Globulin 3.0 g/dL (2.2-4.2); Glucose 84 mg/dL (70-99); Low Density Lipoprotein Calc. 99 mg/dL; Potassium 4.3 mmol/L (3.3-5.1); Triglycerides 96 mg/dL; Very Low Density Lipoprotein 19 mg/dL (5-40); cholesterol:hdl ratio screen 2.71
== END | disposition home or self-care (01) ==
LOC: MTLAB 08:23
PROVIDERS: PCP Family Medicine Sports Medicine; Referring Provider Internal Medicine Rheumatology; Visit Provider Internal Medicine Rheumatology
DX: Z13.220 Encounter for screening for lipoid disorders (principal); M32.9 Systemic lupus erythematosus, unspecified; Z79.899 Other long term (current) drug therapy; L40.8 Other psoriasis
CPT/HCPCS: 36415; 80053; 80061; 85025